=== PATIENT | female | born 1990 | race Caucasian/White ===

== ENCOUNTER 2019-02-16 18:38 | Emergency (ER) | payer BC ==
[2019-02-16 18:49] VITALS: BP 97/54; PULSE 109
[2019-02-16] MEDS ORDERED: Sodium Chloride 0.9% 10 ML Syringe FLUSH PRN (19:02)
[2019-02-16] MEDS ORDERED: Ondansetron 4 MG/2 ML SDV IVPUSH ONE (19:04)
[2019-02-16] MEDS ORDERED: Metoclopramide 10 MG/2 ML SDV IVPUSH ONE (19:13)
[2019-02-16] MEDS ORDERED: Sodium Chloride 0.9% 1,000 ML IV SCH (19:15)
[2019-02-16] MEDS ORDERED: Potassium Chloride 20 MEQ Tab.ER PO ONE (20:06)
--- NOTE | 2019-02-16 20:13 | EDM.PDOC ---
ED HPI GENERAL MEDICAL PROBLEM - General Chief Complaint: Syncope Stated Complaint: STOMACH Time Seen by Provider: 02/16/19 18:50 Source of Information: Reports: Patient History Limitations: Reports: No Limitations - History of Present Illness INITIAL COMMENTS - FREE TEXT/NARRATIVE: Patient presented to the ED because of Syncopal episode while in the clinic. She was having N/V before passing out. She has been having N/V/D since yesterday and is feeling week and dizzy. She denies having any fever or chill, or any abdominal pain. Treatments GRANITE POLISHER: Reports: Other (see below) Other Treatments GRANITE POLISHER: Zofran - Related Data Allergies Allergy/AdvReac Type Severity Reaction Status Date / Time metronidazole [From Flagyl] Allergy Cannot Verified 02/16/19 18:45 Remember Home Meds: Home Meds Multivitamin [Multi-Vitamin Daily] 1 tab PO DAILY 01/26/18 [History] Ondansetron [Zofran ODT] 4 mg PO Q4H PRN #5 tab.dis 02/16/19 [Rx] Past Medical History COMMUNICATION SPECIALIST History: Reports: , Other (See Below) Other COMMUNICATION SPECIALIST History: Spontaneous , ON 05/30/15 Psychiatric History: Reports: Eating Disorders - Past Surgical History HEENT Surgical History: Reports: Oral Surgery Social & Family History - Family History Family Medical History: Noncontributory Oncologic: Reports: Skin - Tobacco Use Smoking Status *Q: Never Smoker - Caffeine Use Caffeine Use: Reports: Coffee - Recreational Drug Use Recreational Drug Use: No ED ROS GENERAL - Review of Systems Review Of Systems: See Below Constitutional: Reports: No Symptoms HEENT: Reports: No Symptoms Respiratory: Reports: No Symptoms Cardiovascular: Reports: No Symptoms Endocrine: Reports: No Symptoms GI/Abdominal: Reports: No Symptoms, Diarrhea, Nausea, Vomiting : Reports: No Symptoms Musculoskeletal: Reports: No Symptoms Skin: Reports: No Symptoms Neurological: Reports: Dizziness Psychiatric: Reports: No Symptoms Hematologic/Lymphatic: Reports: No Symptoms Immunologic: Reports: No Symptoms - Physical Exam Exam: See Below Exam Limited By: No Limitations General Appearance: Alert, WD/WN, No Apparent Distress Eye Exam: Bilateral Eye: PERRL Ears: Normal External Exam, Normal Canal, Hearing Grossly Normal Nose: Normal Inspection, Normal Mucosa, Nasal Drainage Throat/Mouth: Normal Inspection, Normal Lips, Normal Teeth, Normal Gums Head Exam: Atraumatic, Normocephalic Neck: Normal Inspection, Supple, Non-Tender, Full Range of Motion Respiratory/Chest: No Respiratory Distress, Lungs Clear, Normal Breath Sounds, No Accessory Muscle Use, Chest Non-Tender Cardiovascular: Normal Peripheral Pulses, Regular Rate, Rhythm, No Edema, No Gallop, No JVD, No Murmur, No Rub GI/Abdominal: Soft, Non-Tender, No Organomegaly, No Distention, No Abnormal Bruit, Other (hyperactive bowel sound) Extremities: Normal Inspection, Normal Range of Motion, Non-Tender Psychiatric: Normal Affect, Normal Mood Skin Exam: Warm Course - Vital Signs Text/Narrative:: labs discussed with patient and with full understanding refused to have EKG,Head CT-she said she doesn't need it NS 1 L bolus reglan 10 mg IV x1 Last Recorded V/S: Last Vital Signs Temp 36.7 C 02/16/19 18:45 Pulse 109 H 02/16/19 18:45 Resp 13 02/16/19 18:45 BP 97/54 L 02/16/19 18:45 Pulse Ox 100 02/16/19 18:45 - Orders/Labs/Meds Orders: Active Orders 24 hr Category Date Time Status EKG Documentation Completion [RC] ASDIRECTED Care 02/16/19 19:03 Active Saline Lock Insert [OM.PC] Routine Oth 02/16/19 19:02 Ordered EKG 12 Lead [EK] Routine Ther 02/16/19 19:02 Ordered Labs: Laboratory Tests 02/16/19 02/16/19 Range/Units 19:20 19:20 WBC 18.0 H (4.5-12.0) X10-3/uL RBC 4.59 (3.23-5.20) x10(6)uL Hgb 14.4 (11.5-15.5) g/dL Hct 40.7 (30.0-51.3) % MCV 88.8 (80-96) fL MCH 31.3 (27.7-33.6) pg MCHC 35.3 (32.2-35.4) g/dL RDW 11.7 (11.5-15.5) % Plt Count 204 (125-369) X10(3)uL MPV 9.1 (7.4-10.4) fL Add Manual Diff Yes Neutrophils % (Manual) 89 H (46-82) % Band Neutrophils % 1 (0-6) % Lymphocytes % (Manual) 6 L (13-37) % Monocytes % (Manual) 4 (4-12) % Sodium 143 (135-145) mmol/L Potassium 3.4 L (3.5-5.3) mmol/L Chloride 105 (100-110) mmol/L Carbon Dioxide 27 (21-32) mmol/L BUN 16 (7-18) mg/dL Creatinine 0.7 (0.55-1.02) mg/dL Est Cr Clr Drug Dosing 89.96 mL/min Estimated GFR (MDRD) > 60 (>60) BUN/Creatinine Ratio 22.9 H (9-20) Glucose 102 (80-116) mg/dL Calcium 8.3 L (8.6-10.2) mg/dL Meds: Medications Discontinued Medications Generic Name Dose Route Start Last Admin Trade Name Freq PRN Reason Stop Dose Admin Sodium Chloride 1,000 mls @ 999 mls/hr 02/16/19 19:15 02/16/19 19:11 Normal Saline IV 999 mls/hr ASDIRECTED JUDSON Administration Metoclopramide HCl 10 mg 02/16/19 19:13 02/16/19 19:17 Reglan IVPUSH 02/16/19 19:14 10 mg ONETIME ONE Administration Ondansetron HCl 4 mg 02/16/19 19:04 02/16/19 19:14 Zofran IVPUSH 02/16/19 19:05 Not Given ONETIME ONE Ondansetron HCl 4 mg 02/16/19 20:29 02/16/19 20:39 Zofran Odt PO 02/16/19 20:30 Not Given ONETIME ONE Potassium Chloride 40 meq 02/16/19 20:06 02/16/19 20:17 Klor-Con M20 PO 02/16/19 20:07 40 meq ONETIME ONE Administration Sodium Chloride 10 ml 02/16/19 19:02 02/16/19 19:05 Saline Flush FLUSH 10 ml ASDIRECTED PRN Administration Keep Vein Open Departure - Departure Time of Disposition: 20:15 Disposition: Home, Self-Care 01 Condition: Good Clinical Impression: Vasovagal syncope, Dehydration, Hypokalemia, Syncope - Discharge Information Prescriptions: Ondansetron [Zofran ODT] 4 mg PO Q4H PRN #5 tab.dis PRN Reason: Nausea Instructions: Hypokalemia, Dehydration, Adult, [id number], Syncope, Easy-to- Read Referrals: PCP,None [Primary Care Provider] - Forms: ED Department Discharge Additional Instructions: please read discharge instructions on vasovagal syncope,dehydration,and hypokalemia(low potassium) rest for the night increase oral fluids,drink at least 2 liters a day zofran ODT 4 mg ever 4 hours as needed for nausea follow up as needed Sepsis Event Note - Evaluation Sepsis Screening Result: No Definite Risk - Focused Exam Date Exam was Performed: 02/17/19 Time Exam was Performed: 14:40 - My Orders Last 24 Hours: My Active Orders 02/16/19 19:02 Saline Lock Insert [OM.PC] Routine EKG 12 Lead [EK] Routine 02/16/19 19:03 EKG Documentation Completion [RC] ASDIRECTED - Assessment/Plan Last 24 Hours: My Active Orders 02/16/19 19:02 Saline Lock Insert [OM.PC] Routine EKG 12 Lead [EK] Routine 02/16/19 19:03 EKG Documentation Completion [RC] ASDIRECTED
[2019-02-16] MEDS ORDERED: Ondansetron 4 MG Tab.DIS PO ONE (20:29)
== END 2019-02-16 20:30 | disposition home or self-care (01) ==
LOC: FB.ED 18:38
DX: E86.0 Dehydration (principal); E87.6 Hypokalemia; Z88.1 Allergy status to other antibiotic agents
CPT/HCPCS: 36415; 80048; 85025; 96361; 96374; 99284; A9270; J2765; J7030

== ENCOUNTER 2020-07-11 21:15 | Emergency (ER) | payer BC ==
[2020-07-11 21:29] VITALS: BP 100/58; PULSE 78
[2020-07-11] MEDS ORDERED: Ondansetron 4 MG/2 ML SDV IVPUSH STA (21:38)
[2020-07-11] MEDS ORDERED: Sodium Chloride 0.9% 10 ML Syringe FLUSH PRN (21:38)
[2020-07-11] MEDS ORDERED: Ketorolac 30 MG/ML SDV IVPUSH STA (21:38)
[2020-07-11] MEDS ORDERED: Sodium Chloride 0.9% 1,000 ML IV SCH (21:45)
--- NOTE | 2020-07-11 22:42 | EDM.PDOC ---
ED HPI GENERAL MEDICAL PROBLEM - General Chief Complaint: Gastrointestinal Problem Stated Complaint: COVID POSITIVE-WEAKNESS Time Seen by Provider: 07/11/20 21:30 Source of Information: Reports: Patient History Limitations: Reports: No Limitations - History of Present Illness INITIAL COMMENTS - FREE TEXT/NARRATIVE: Patient presented to the ED because of N/V/D x 6 days and she is feeling weak. She also c/o cough and chest wall pain. She was diagnosed with Covid 19 1 week ago. - Related Data Allergies Allergy/AdvReac Type Severity Reaction Status Date / Time metronidazole [From Flagyl] Allergy Cannot Verified 07/11/20 21:22 Remember Home Meds: Home Meds Ondansetron [Zofran ODT] 4 mg PO Q4H PRN #5 tab.dis 07/11/20 [Rx] Past Medical History DETECTIVE PRECINCT History: Reports: , Other (See Below) Other DETECTIVE PRECINCT History: Spontaneous , ON 05/30/15 Psychiatric History: Reports: Eating Disorders - Past Surgical History HEENT Surgical History: Reports: Oral Surgery Social & Family History - Family History Family Medical History: No Pertinent Family History Oncologic: Reports: Skin - Tobacco Use Tobacco Use Status *Q: Never Tobacco User - Caffeine Use Caffeine Use: Reports: None - Recreational Drug Use Recreational Drug Use: No ED ROS GENERAL - Review of Systems Review Of Systems: See Below Constitutional: Reports: Weakness HEENT: Reports: No Symptoms Respiratory: Reports: Cough Cardiovascular: Reports: No Symptoms Endocrine: Reports: No Symptoms GI/Abdominal: Reports: Diarrhea, Nausea, Vomiting : Reports: No Symptoms, Discharge Musculoskeletal: Reports: No Symptoms, Neck Pain Skin: Reports: No Symptoms Neurological: Reports: No Symptoms Psychiatric: Reports: No Symptoms ED EXAM, GENERAL - Physical Exam Exam: See Below Exam Limited By: No Limitations General Appearance: Alert, No Apparent Distress Ears: Normal External Exam, Normal Canal Nose: Normal Inspection, Normal Mucosa, No Blood Throat/Mouth: Normal Inspection, Normal Lips Head: Atraumatic, Normocephalic Neck: Normal Inspection, Supple, Non-Tender Respiratory/Chest: No Respiratory Distress, Lungs Clear, Normal Breath Sounds, No Accessory Muscle Use, Chest Non-Tender Cardiovascular: Normal Peripheral Pulses, Regular Rate, Rhythm, No Edema, No Gallop, No JVD, No Murmur GI/Abdominal: Normal Bowel Sounds, Soft, Non-Tender, No Organomegaly, No Distention, Other (hyperactive bowel sound) Back Exam: Normal Inspection Extremities: Normal Inspection Neurological: Alert, Oriented, CN II-XII Intact Course - Vital Signs Text/Narrative:: labd result was reviewed and discussed with patient NS 1 L bolus Zofran 4 mg IV x1 Toradol 30 mg IV x1 Last Recorded V/S: Last Vital Signs Temp 36.8 C 07/11/20 21:25 Pulse 78 07/11/20 21:25 Resp 16 07/11/20 21:25 BP 100/58 L 07/11/20 21:25 Pulse Ox 100 07/11/20 21:25 - Orders/Labs/Meds Orders: Active Orders 24 hr Category Date Time Status Chest 1V Frontal [CR] Stat Exams 07/11/20 21:40 Taken Saline Lock Insert [OM.PC] Routine Oth 07/11/20 21:38 Ordered Labs: Laboratory Tests 07/11/20 07/11/20 Range/Units 21:50 21:50 WBC 3.2 (3.0-10.3) x10-3/uL RBC 4.29 (3.60-5.20) x10(6)uL Hgb 12.7 (11.4-15.5) g/dL Hct 37.7 (34.2-48.2) % MCV 88.1 (76.7-100.5) fL MCH 29.6 (23.9-33.9) pg MCHC 33.7 (31.9-34.8) g/dL RDW 12.2 L (12.3-16.5) % Plt Count 139 L (151-488) x10(3)uL MPV 8.5 (7.1-12.4) fL Add Manual Diff Yes Neutrophils % (Manual) 27 L (46-82) % Lymphocytes % (Manual) 63 H (13-37) % Monocytes % (Manual) 10 (4-12) % Sodium 143 (135-145) mmol/L Potassium 4.0 (3.5-5.3) mmol/L Chloride 105 (100-110) mmol/L Carbon Dioxide 29 (21-32) mmol/L BUN 11 (7-18) mg/dL Creatinine 0.7 (0.55-1.02) mg/dL Est Cr Clr Drug Dosing 88.68 mL/min Estimated GFR (MDRD) > 60 (>60) BUN/Creatinine Ratio 15.7 (9-20) Glucose 95 (80-116) mg/dL Calcium 7.9 L (8.6-10.2) mg/dL Meds: Medications Discontinued Medications Generic Name Dose Route Start Last Admin Trade Name Freq PRN Reason Stop Dose Admin Sodium Chloride 1,000 mls @ 999 mls/hr 07/11/20 21:45 07/11/20 22:05 Normal Saline IV 999 mls/hr ASDIRECTED JUDSON Administration Ketorolac Tromethamine 30 mg 07/11/20 21:38 07/11/20 22:08 Ketorolac 30 Mg/Ml Sdv IVPUSH 07/11/20 21:39 30 mg NOW STA Administration Ondansetron HCl 4 mg 07/11/20 21:38 07/11/20 22:05 Ondansetron 4 Mg/2 Ml Sdv IVPUSH 07/11/20 21:39 4 mg NOW STA Administration Sodium Chloride 10 ml 07/11/20 21:38 Sodium Chloride 0.9% 10 Ml Syringe FLUSH ASDIRECTED PRN Keep Vein Open Departure - Departure Time of Disposition: 22:45 Disposition: Home, Self-Care 01 Condition: Good Clinical Impression: COVID-19, Viral gastroenteritis, Dehydration - Discharge Information Prescriptions: Ondansetron [Zofran ODT] 4 mg PO Q4H PRN #5 tab.dis PRN Reason: Nausea Instructions: COVID-19 Frequently Asked Questions, Viral Gastroenteritis, Adult, [id number], Dehydration, Adult, [id number] Referrals: PCP,Unknown [Primary Care Provider] - Forms: ED Department Discharge Additional Instructions: Please read discharge instructions on Covid 19 and gastroenteritis Drink at least 2 liters of water a day Zofran OFT 4 mg every 4 hours as needed for nausea Ibuprofen 800 mg with tylenol 1000 mg every 8 hours as needed for aches/pain Follow up as needed Sepsis Event Note (ED) - Evaluation Sepsis Screening Result: No Definite Risk - My Orders Last 24 Hours: My Active Orders 07/11/20 21:38 Saline Lock Insert [OM.PC] Routine 07/11/20 21:40 Chest 1V Frontal [CR] Stat - Assessment/Plan Last 24 Hours: My Active Orders 07/11/20 21:38 Saline Lock Insert [OM.PC] Routine 07/11/20 21:40 Chest 1V Frontal [CR] Stat
--- NOTE | 2020-07-12 11:10 | CR ---
CHEST ONE VIEW 9361 INDICATION: COVID positive. Cough. AP portable upright view of the chest was obtained --no comparison. A moderate dextroconvex scoliosis of the lower middle thoracic spine is noted. Heart and mediastinum are unremarkable. A definite active infiltrate or effusion was not identified. IMPRESSION: 1. No acute process. 2. Scoliosis. MTDD
== END 2020-07-11 23:15 | disposition home or self-care (01) ==
LOC: FB.ED 21:15
DX: U07.1 COVID-19 (principal); A08.4 Viral intestinal infection, unspecified; E86.0 Dehydration; Z88.1 Allergy status to other antibiotic agents
CPT/HCPCS: 36415; 71045; 80048; 85025; 96374; 96375; 99283; 99285; J1885; J2405; J7030

== ENCOUNTER 2021-04-23 19:42 | Emergency (ER) | payer OTHER ==
[2021-04-23] MEDS ORDERED: traMADol 50 MG Tab PO ONE (19:43)
[2021-04-23 19:59] VITALS: BP 108/50; PULSE 79
== END 2021-04-23 20:18 | disposition home or self-care (01) ==
LOC: FB.ED 19:42
DX: N39.0 Urinary tract infection, site not specified (principal); Z88.8 Allergy status to other drugs, medicaments and biological substances
CPT/HCPCS: 99283; A9270-GY

== ENCOUNTER 2024-07-18 15:00 | Emergency (ER) | payer BC ==
[2024-07-18 15:13] VITALS: BP 99/67; PULSE 98
[2024-07-18] MEDS ORDERED: Sodium Chloride 0.9% 10 ML Syringe FLUSH PRN (15:14)
[2024-07-18] MEDS ORDERED: Sodium Chloride 0.9% 1,000 ML IV SCH (15:15)
== END 2024-07-18 16:16 | disposition home or self-care (01) ==
LOC: FB.ED 15:00
DX: I95.1 Orthostatic hypotension (principal); Z86.16 Personal history of COVID-19; Z88.8 Allergy status to other drugs, medicaments and biological substances
CPT/HCPCS: 70450; 93005; 99284